=== PATIENT | male | born 1975 | race Caucasian/White ===

== ENCOUNTER → 2021-04-10 | Outpatient (CLI) | payer OTHER | LOC: HYPER 08:59 | PROVIDERS: ATTEND Emergency Medicine | DX: I83.028 Varicose veins of left lower extremity with ulcer other part of lower leg (principal); L97.822 Non-pressure chronic ulcer of other part of left lower leg with fat layer exposed; L40.59 Other psoriatic arthropathy; F41.9 Anxiety disorder, unspecified; F32.9 Major depressive disorder, single episode, unspecified; Z87.891 Personal history of nicotine dependence; Z90.49 Acquired absence of other specified parts of digestive tract; Z90.89 Acquired absence of other organs; Z79.899 Other long term (current) drug therapy ==

== ENCOUNTER → 2021-04-17 | Outpatient (CLI) | payer OTHER | LOC: HYPER 08:06 | PROVIDERS: ATTEND Emergency Medicine | DX: I83.028 Varicose veins of left lower extremity with ulcer other part of lower leg (principal); L97.822 Non-pressure chronic ulcer of other part of left lower leg with fat layer exposed; L40.59 Other psoriatic arthropathy; I10 Essential (primary) hypertension; Z87.891 Personal history of nicotine dependence; Z79.899 Other long term (current) drug therapy ==

== ENCOUNTER → 2021-05-05 | Outpatient (CLI) | payer OTHER | LOC: HYPER 08:51 | PROVIDERS: ATTEND Emergency Medicine | DX: I83.028 Varicose veins of left lower extremity with ulcer other part of lower leg (principal); L97.822 Non-pressure chronic ulcer of other part of left lower leg with fat layer exposed; L84 Corns and callosities; L40.59 Other psoriatic arthropathy; I10 Essential (primary) hypertension; F41.9 Anxiety disorder, unspecified; F32.9 Major depressive disorder, single episode, unspecified; Z87.891 Personal history of nicotine dependence ==

== ENCOUNTER → 2021-05-20 | Outpatient (CLI) | payer OTHER | LOC: HYPER 13:05 | PROVIDERS: ATTEND Emergency Medicine | DX: I83.028 Varicose veins of left lower extremity with ulcer other part of lower leg (principal); L97.822 Non-pressure chronic ulcer of other part of left lower leg with fat layer exposed; I10 Essential (primary) hypertension; L40.59 Other psoriatic arthropathy; F41.9 Anxiety disorder, unspecified; F32.9 Major depressive disorder, single episode, unspecified; Z87.891 Personal history of nicotine dependence; Z79.899 Other long term (current) drug therapy ==